=== PATIENT | male | born 1950 | race Caucasian/White ===

== ENCOUNTER 2017-06-11 13:14 | Emergency (ER) | payer MEDICARE ==
[~2017-06-11] VITALS: Ht 185.4 cm; Wt 76.0 kg
[2017-06-11 13:42] LABS: GLUCOSE,POINT OF CARE 141 MG/DL (70-110)
[2017-06-11] MEDS ORDERED: KETOROLAC TROMETHAMINE 60 MG/2 ML VIAL IM ONE (14:00)
[2017-06-11] MEDS ORDERED: KETOROLAC TROMETHAMINE 10 MG TABLET PO ONE (14:30)
[2017-06-11 15:18] VITALS: BP 137/73
== END 2017-06-11 15:54 | disposition home or self-care (01) ==
LOC: EMS 13:16
DX: S20.212A Contusion of left front wall of thorax, initial encounter (principal); E11.9 Type 2 diabetes mellitus without complications; E78.00 Pure hypercholesterolemia, unspecified; I10 Essential (primary) hypertension; F12.90 Cannabis use, unspecified, uncomplicated; F17.210 Nicotine dependence, cigarettes, uncomplicated; V49.40XA Driver injured in collision with unspecified motor vehicles in traffic accident, initial encounter; Y93.89 Activity, other specified; Y92.89 Other specified places as the place of occurrence of the external cause; Y99.8 Other external cause status
CPT/HCPCS: 71020; 82962; 99284; J1885

== ENCOUNTER 2017-08-10 04:55 | Inpatient (IN) | payer MEDICARE ==
[~2017-08-10] VITALS: Ht 180.3 cm; Wt 71.1 kg
[2017-08-10 06:22] LABS: EOSINOPHILS % (AUTO) 0 % (1.0-6.0); HEMATOCRIT 27.9 % (41-53); HEMOGLOBIN 9.2 g/dL (13.5-17.5); LYMPHOCYTES # (AUTO) 0.5 K/uL (1.0-4.8); LYMPHOCYTES % (AUTO) 3.7 % (22.0-44.0); MEAN CORPUSCULAR HEMOGLOBIN 29.2 pg (26.0-34.0); MEAN CORPUSCULAR HGB CONC 33.1 G/dL (31.0-37.0); MEAN CORPUSCULAR VOLUME 88 fL (80-100); MONOCYTES # (AUTO) 1.3 K/uL (0.1-1.0); MONOCYTES % (AUTO) 9.1 % (2.0-9.0); NEUTROPHILS # (AUTO) 12.9 K/uL (1.8-7.7); PLATELET COUNT (AUTO) 325 K/uL (150-450); RED BLOOD CELL COUNT(AUTO) 3.15 MIL/uL (4.50-5.90); RED CELL DISTRIBUTION WIDTH 18.1 % (11.5-14.5)
[2017-08-10 06:23] LABS: NEUTROPHILS % (AUTO) 87.2 % (40.0-70.0)
[2017-08-10] MEDS ORDERED: ACETAMINOPHEN 325 MG TABLET PO ONE (06:30)
[2017-08-10] MEDS ORDERED: ACETAMINOPHEN 1000 MG/ISO-OSM 100 ML IV ONE (06:30)
[2017-08-10 06:31] LABS: ANION GAP 18 mmol/L (8-16); CALCIUM, TOTAL 9.2 mg/dL (8.8-10.5); CARBON DIOXIDE 24 mmol/L (22-29); CHLORIDE 98 mmol/L (98-107); CREATININE 12.87 mg/dL (0.60-1.30); GLOMERULAR FILTR. RATE CALC 4 mL/min (>60); GLUCOSE,RANDOM 261 mg/dL (70-110); POTASSIUM 4.1 mmol/L (3.5-5.1); SODIUM SERUM 140 mmol/L (136-145); UREA NITROGEN, BLOOD 55 mg/dL (7-18)
[2017-08-10 06:32] LABS: INR 1.2 (0.9-1.1); PROTHROMBIN TIME 12.6 SEC (9.4-11.6)
[2017-08-10 06:37] LABS: ALANINE AMINOTRANSFERASE 11 U/L (12-78); ALBUMIN 2.5 g/dL (3.4-5.0); ALKALINE PHOSPHATASE 107 U/L (46-116); ASPARTATE AMINOTRANSFERASE 13 U/L (15-37); BILIRUBIN,TOTAL 0.6 mg/dL (0.1-1.0); CREATINE KINASE, TOTAL 58 U/L (39-308); TOTAL PROTEIN, SERUM 8.1 g/dL (6.4-8.2)
[2017-08-10 06:39] LABS: TROPONIN I 0.11 ng/mL (0.00-0.05)
[2017-08-10] MEDS ORDERED: CEFEPIME HCL 1 GM in DEXTROSE 5%-WATER 50 ML IV ONE (06:45)
[2017-08-10] MEDS ORDERED: VANCOMYCIN HCL 1 GM/D5% WATER 200 ML IV ONE (06:45)
[2017-08-10 07:08] LABS: AMPHET/METH SCREEN,URINE NEGATIVE (NEGATIVE); BARBITURATE SCREEN, URINE NEGATIVE (NEGATIVE); BENZODIAZEPINES SCREEN,URINE NEGATIVE (NEGATIVE); CANNABINOID SCREEN,URINE NEGATIVE (NEGATIVE); COCAINE SCREEN,URINE NEGATIVE (NEGATIVE); METHADONE SCREEN, URINE NEGATIVE (NEGATIVE); OPIATE SCREEN,URINE NEGATIVE (NEGATIVE)
[2017-08-10 07:12] LABS: PHENCYCLIDINE SCREEN,URINE NEGATIVE (NEGATIVE)
[2017-08-10 07:15] LABS: AMMONIA < 10 umol/L (11-32); LACTIC ACID 2.5 mmol/L (0.4-2.0)
[2017-08-10 07:17] LABS: INFLUENZA TYPE A NEGATIVE FOR TYPE A (NEGATIVE); INFLUENZA TYPE B NEGATIVE FOR TYPE B (NEGATIVE)
[2017-08-10] MEDS ORDERED: SODIUM CHLORIDE 0.9% 1,000 ML IV ONE (09:15)
[2017-08-10] MEDS ORDERED: LORazepam 2 MG/ML VIAL IVP ONE ×2 (09:15→10:15)
[2017-08-10] MEDS ORDERED: KETAMINE HCL 50 MG/ML 10 ML VIAL IVP ONE (10:45)
[2017-08-10] MEDS ORDERED: 0.9% SODIUM CHLORIDE 10 ML SYRINGE IVP PRN ×2 (11:45→20:15)
[2017-08-10] MEDS ORDERED: ACETAMINOPHEN 325 MG TABLET PO PRN (11:45)
[2017-08-10] MEDS ORDERED: ONDANSETRON HCL 4 MG/2 ML VIAL IVP PRN (11:45)
[2017-08-10 14:34] VITALS: BP 163/86
[2017-08-10] MEDS ORDERED: HEPARIN SODIUM,PORCINE 1,000 UNITS/ML VIAL IVP ONE (15:56)
[2017-08-10 16:35] VITALS: BP 164/66
[2017-08-10] MEDS ORDERED: HALOPERIDOL LACTATE 5 MG/ML VIAL IM ONE (17:00)
[2017-08-10] MEDS ORDERED: AMIODARONE HCL 360 MG in DEXTROSE 5%-WATER 242.8 ML IV ONE (19:30)
[2017-08-10] MEDS ORDERED: AMIODARONE HCL 150 MG in DEXTROSE 5%-WATER 97 ML IV ONE (19:30)
[2017-08-10 20:18] VITALS: BP 111/57
[2017-08-10 20:34] LABS: MAGNESIUM 1.8 mg/dL (1.80-2.40); PHOSPHORUS 3.1 mg/dL (2.5-4.9)
[2017-08-10] MEDS ORDERED: VANCOMYCIN HCL 1 GM/D5% WATER 200 ML IV PRN (20:45)
[2017-08-10] MEDS ORDERED: PIPERACILLIN SODIUM/TAZOBACTAM 0.75 GM in DEXTROSE 5%-WATER 50 ML IV PRN (20:45)
[2017-08-10] MEDS: PIPERACILLIN SODIUM/TAZOBACTAM 2.25 GM in DEXTROSE 5%-WATER 50 ML IV SCH (22:23)
[2017-08-10] MEDS ORDERED: SODIUM CHLORIDE 0.9% 250 ML IV ONE (22:45)
[2017-08-10] MEDS ORDERED: DEXTROSE 50%-WATER 25 GM/50 ML SYRINGE IVP PRN (23:00)
[2017-08-11] VITALS (8 sets, daily range): BP systolic 13–167; BP diastolic 51–92
[2017-08-11 00:42] LABS: GLUCOMETER DEV NAME(LOC) 5N 2R; GLUCOSE,POINT OF CARE 172 MG/DL (70-110)
[2017-08-11 00:42] LABS: GLUCOMETER DEV NAME(LOC) 5N 2R; GLUCOSE,POINT OF CARE 144 MG/DL (70-110)
[2017-08-11] MEDS ORDERED: AMIODARONE HCL 540 MG in DEXTROSE 5%-WATER 239.2 ML IV ONE (01:30)
[2017-08-11] MEDS ORDERED: SODIUM CHLORIDE 0.9% 50 ML ONE (05:10)
[2017-08-11] MEDS: PIPERACILLIN SODIUM/TAZOBACTAM 2.25 GM in DEXTROSE 5%-WATER 50 ML IV SCH ×3 (06:04→20:31)
[2017-08-11 06:43] LABS: EOSINOPHILS % (AUTO) 0.1 % (1.0-6.0); HEMATOCRIT 26.4 % (41-53); HEMOGLOBIN 8.6 g/dL (13.5-17.5); LYMPHOCYTES # (AUTO) 1.8 K/uL (1.0-4.8); MEAN CORPUSCULAR HEMOGLOBIN 29.2 pg (26.0-34.0); MEAN CORPUSCULAR HGB CONC 32.5 G/dL (31.0-37.0); MEAN CORPUSCULAR VOLUME 90 fL (80-100); MONOCYTES # (AUTO) 1.3 K/uL (0.1-1.0); MONOCYTES % (AUTO) 7.8 % (2.0-9.0); NEUTROPHILS # (AUTO) 13.4 K/uL (1.8-7.7); NEUTROPHILS % (AUTO) 81.1 % (40.0-70.0); PLATELET COUNT (AUTO) 321 K/uL (150-450); RED BLOOD CELL COUNT(AUTO) 2.94 MIL/uL (4.50-5.90); RED CELL DISTRIBUTION WIDTH 18.2 % (11.5-14.5)
[2017-08-11 07:01] LABS: ALBUMIN 2.2 g/dL (3.4-5.0); BILIRUBIN,TOTAL 0.6 mg/dL (0.1-1.0); CALCIUM, TOTAL 9.5 mg/dL (8.8-10.5); CREATININE 8.51 mg/dL (0.60-1.30); MAGNESIUM 1.8 mg/dL (1.80-2.40); PHOSPHORUS 5.5 mg/dL (2.5-4.9); POTASSIUM 4.3 mmol/L (3.5-5.1); TOTAL PROTEIN, SERUM 7.7 g/dL (6.4-8.2)
[2017-08-11] MEDS: -POST HEMODIALYSIS NOTE- MISC SCH (09:00)
[2017-08-11] MEDS: CALCIUM ACETATE 667 MG CAPSULE PO SCH ×3 (09:26→18:10)
[2017-08-11] MEDS: PANTOPRAZOLE SODIUM 40 MG/VIAL IVP SCH (09:33)
[2017-08-11] MEDS: VITAMIN B COMP/VIT C/FOLIC ACID CAPSULE PO SCH (09:33)
[2017-08-11 15:47] LABS: GLUCOMETER DEV NAME(LOC) 5N 2R; GLUCOSE,POINT OF CARE 219 MG/DL (70-110)
[2017-08-11] MEDS: METOPROLOL TARTRATE 25 MG TABLET PO SCH ×2 (18:10→20:31)
[2017-08-11] MEDS ORDERED: AMIODARONE HCL 750 MG in DEXTROSE 5%-WATER 485 ML IV SCH (19:30)
[2017-08-11] MEDS: INSULIN ASPART 100 UNITS/ML SQ PRN (20:42)
[2017-08-12] MEDS: PIPERACILLIN SODIUM/TAZOBACTAM 2.25 GM in DEXTROSE 5%-WATER 50 ML IV SCH ×3 (04:13→20:53)
[2017-08-12 04:36] VITALS: BP 133/68
[2017-08-12] MEDS: ACETAMINOPHEN 325 MG TABLET PO PRN ×2 (04:36→18:20)
[2017-08-12] MEDS: INSULIN ASPART 100 UNITS/ML SQ PRN ×2 (06:22→18:28)
[2017-08-12 07:16] VITALS: BP 104/51
[2017-08-12 07:47] LABS: VANCOMYCIN,RANDOM 11.3 mcg/mL (25.0-50.0)
[2017-08-12 07:51] LABS: % IRON SATURATION 47.1 % (30-44)
[2017-08-12] MEDS ORDERED: VANCOMYCIN HCL 1 GM/D5% WATER 200 ML IV ONE (09:00)
[2017-08-12 09:35] VITALS: BP 134/87
[2017-08-12] MEDS: METOPROLOL TARTRATE 25 MG TABLET PO SCH ×2 (09:38→20:54)
[2017-08-12] MEDS: VITAMIN B COMP/VIT C/FOLIC ACID CAPSULE PO SCH (09:38)
[2017-08-12] MEDS: CALCIUM ACETATE 667 MG CAPSULE PO SCH ×3 (09:38→18:20)
[2017-08-12] MEDS: EPOETIN ALFA 10,000 UNITS/ML VIAL SQ SCH (09:39)
[2017-08-12] MEDS: PANTOPRAZOLE SODIUM 40 MG/VIAL IVP SCH (09:40)
[2017-08-12 10:03] LABS: APPEARANCE,URINE TURBID (CLEAR); BILIRUBIN,URINE NEGATIVE (NEGATIVE); GLUCOSE, URINE (UA) 250 mg/dL (NEGATIVE); KETONES,URINE TRACE mg/dL (NEGATIVE); LEUKOCYTE ESTERASE ,URINE MODERATE (NEGATIVE); NITRATE,URINE NEGATIVE (NEGATIVE); OCCULT BLOOD,URINE LARGE (NEGATIVE); PH,URINE 7.5 (5.0-8.0); PROTEIN,URINE SEE CONFIRM (NEGATIVE); UROBILINOGEN,URINE 0.2 mg/dL (<=1.0)
[2017-08-12 10:32] LABS: SULFOSALICYLIC ACID,URINE 3+ (Negative)
[2017-08-12 10:34] LABS: RBC,URINE 26-50 /HPF (0-2)
[2017-08-12 10:35] LABS: BACTERIA,URINE Few /HPF (None Seen); WBC,URINE 51-100 /HPF (0-5)
[2017-08-12 10:36] LABS: SQUAMOUS EPITHELIAL CELL,UR Few /LPF (None Seen); TRANSITIONAL EPI CELLS,URINE Few /LPF (None Seen)
[2017-08-12 10:37] LABS: AMORPHOUS SEDIMENT,UR Few /LPF (None Seen); FINE GRANULAR CASTS,URINE 0-2 /LPF (None Seen)
[2017-08-12 11:37] VITALS: BP 137/76
[2017-08-12] MEDS: -POST HEMODIALYSIS NOTE- MISC SCH (12:31)
[2017-08-12] MEDS ORDERED: SODIUM CHLORIDE 0.9% 100 ML ONE (13:35)
[2017-08-12 15:35] VITALS: BP 148/80
[2017-08-12 17:28] LABS: GLUCOMETER DEV NAME(LOC) 5N 1M; GLUCOSE,POINT OF CARE 199 MG/DL (70-110)
[2017-08-12 17:29] LABS: GLUCOMETER DEV NAME(LOC) 5N 1M; GLUCOSE,POINT OF CARE 228 MG/DL (70-110)
[2017-08-12 17:29] LABS: GLUCOMETER DEV NAME(LOC) 5N 1M; GLUCOSE,POINT OF CARE 203 MG/DL (70-110)
[2017-08-12 17:29] LABS: GLUCOMETER DEV NAME(LOC) 5N 1M; GLUCOSE,POINT OF CARE 253 MG/DL (70-110)
[2017-08-12 17:33] LABS: GLUCOMETER DEV NAME(LOC) 5N 2R; GLUCOSE,POINT OF CARE 215 MG/DL (70-110)
[2017-08-12 18:03] LABS: GLUCOMETER DEV NAME(LOC) 5N 1M; GLUCOSE,POINT OF CARE 253 MG/DL (70-110)
[2017-08-12 19:38] VITALS: BP 122/72
[2017-08-12] MEDS ORDERED: SODIUM CHLORIDE 0.9% 250 ML IV ONE (20:44)
[2017-08-13 00:23] VITALS: BP 121/74
[2017-08-13] MEDS: ACETAMINOPHEN 325 MG TABLET PO PRN ×3 (03:09→15:01)
[2017-08-13 04:34] VITALS: BP 128/89
[2017-08-13] MEDS: PIPERACILLIN SODIUM/TAZOBACTAM 2.25 GM in DEXTROSE 5%-WATER 50 ML IV SCH ×3 (05:42→21:11)
[2017-08-13] MEDS: INSULIN ASPART 100 UNITS/ML SQ PRN ×4 (05:58→21:18)
[2017-08-13 06:07] LABS: GLUCOMETER DEV NAME(LOC) 6N 1E; GLUCOSE,POINT OF CARE 259 MG/DL (70-110)
[2017-08-13 07:52] VITALS: BP 114/61
[2017-08-13] MEDS: CALCIUM ACETATE 667 MG CAPSULE PO SCH ×3 (07:59→18:05)
[2017-08-13] MEDS: PANTOPRAZOLE SODIUM 40 MG/VIAL IVP SCH (08:02)
[2017-08-13] MEDS ORDERED: SODIUM CHLORIDE 0.9% 2,000 ML IV ONE (08:56)
[2017-08-13] MEDS: ASPIRIN 81 MG CHEWABLE TABLET PO SCH (10:12)
[2017-08-13] MEDS: METOPROLOL TARTRATE 25 MG TABLET PO SCH ×2 (10:47→21:14)
[2017-08-13 10:50] LABS: HEMATOCRIT 28.2 % (41-53); HEMOGLOBIN 9.1 g/dL (13.5-17.5); MEAN CORPUSCULAR HEMOGLOBIN 28.9 pg (26.0-34.0); MEAN CORPUSCULAR HGB CONC 32.1 G/dL (31.0-37.0); MEAN CORPUSCULAR VOLUME 90 fL (80-100); PLATELET COUNT (AUTO) 383 K/uL (150-450); RED BLOOD CELL COUNT(AUTO) 3.13 MIL/uL (4.50-5.90); RED CELL DISTRIBUTION WIDTH 18.8 % (11.5-14.5)
[2017-08-13 11:58] LABS: EOSINOPHILS % (MANUAL) 1 % (1-6); LYMPHOCYTES % (MANUAL) 19 % (22-44); MONOCYTES % (MANUAL) 6 % (2-9); SEGMENTED NEUTROPHILS % 74 % (40-70)
[2017-08-13] MEDS ORDERED: ONDANSETRON HCL 4 MG/2 ML VIAL IVP PRN (12:15)
[2017-08-13] MEDS: VITAMIN B COMP/VIT C/FOLIC ACID CAPSULE PO SCH (13:04)
[2017-08-13 14:08] VITALS: BP 155/71
[2017-08-13 16:00] VITALS: BP 100/67
[2017-08-13 16:11] LABS: CALCIUM, TOTAL 8.3 mg/dL (8.8-10.5); CREATININE 11.39 mg/dL (0.60-1.30); POTASSIUM 3.3 mmol/L (3.5-5.1)
[2017-08-13 17:38] LABS: GLUCOMETER DEV NAME(LOC) 6N 2D; GLUCOSE,POINT OF CARE 277 MG/DL (70-110)
[2017-08-13 18:34] LABS: GLUCOMETER DEV NAME(LOC) 6N 1E; GLUCOSE,POINT OF CARE 171 MG/DL (70-110)
[2017-08-13 20:00] VITALS: BP 123/59
[2017-08-14 00:28] VITALS: BP 139/68
[2017-08-14 02:32] LABS: GLUCOMETER DEV NAME(LOC) 6N 2D; GLUCOSE,POINT OF CARE 265 MG/DL (70-110)
[2017-08-14] MEDS: CefTRIAXone 1 GM/DEXTROSE 50 ML IV SCH (03:38)
[2017-08-14 04:00] VITALS: BP 112/60
[2017-08-14 07:17] VITALS: BP 129/64
[2017-08-14] MEDS: INSULIN ASPART 100 UNITS/ML SQ PRN ×3 (07:31→21:06)
[2017-08-14 07:36] LABS: HEMATOCRIT 27.7 % (41-53); HEMOGLOBIN 8.7 g/dL (13.5-17.5); MEAN CORPUSCULAR HEMOGLOBIN 28.5 pg (26.0-34.0); MEAN CORPUSCULAR HGB CONC 31.5 G/dL (31.0-37.0); MEAN CORPUSCULAR VOLUME 90 fL (80-100); PLATELET COUNT (AUTO) 407 K/uL (150-450); RED BLOOD CELL COUNT(AUTO) 3.06 MIL/uL (4.50-5.90); RED CELL DISTRIBUTION WIDTH 18.5 % (11.5-14.5)
[2017-08-14 07:43] LABS: CREATININE 9.45 mg/dL (0.60-1.30)
[2017-08-14 08:45] LABS: CALCIUM, TOTAL 9.2 mg/dL (8.8-10.5); POTASSIUM 4.5 mmol/L (3.5-5.1)
[2017-08-14] MEDS: VITAMIN B COMP/VIT C/FOLIC ACID CAPSULE PO SCH (09:46)
[2017-08-14] MEDS: CALCIUM ACETATE 667 MG CAPSULE PO SCH ×3 (09:46→18:04)
[2017-08-14] MEDS: PANTOPRAZOLE SODIUM 40 MG/VIAL IVP SCH (09:47)
[2017-08-14] MEDS: ASPIRIN 81 MG CHEWABLE TABLET PO SCH (09:47)
[2017-08-14] MEDS: METOPROLOL TARTRATE 25 MG TABLET PO SCH ×2 (09:47→21:01)
[2017-08-14] MEDS: EPOETIN ALFA 10,000 UNITS/ML VIAL SQ SCH (09:50)
[2017-08-14 10:14] LABS: BAND NEUTROPHILS % (MANUAL) 3 % (1-5); LYMPHOCYTES % (MANUAL) 16 % (22-44); MONOCYTES % (MANUAL) 5 % (2-9); SEGMENTED NEUTROPHILS % 76 % (40-70)
[2017-08-14 11:33] LABS: GLUCOMETER DEV NAME(LOC) 6N 1E; GLUCOSE,POINT OF CARE 158 MG/DL (70-110)
[2017-08-14 11:33] LABS: GLUCOMETER DEV NAME(LOC) 6N 1E; GLUCOSE,POINT OF CARE 166 MG/DL (70-110)
[2017-08-14 15:00] VITALS: BP 122/70
[2017-08-14 17:28] LABS: GLUCOMETER DEV NAME(LOC) 6N 2D; GLUCOSE,POINT OF CARE 262 MG/DL (70-110)
[2017-08-14 20:32] VITALS: BP 130/59
[2017-08-14] MEDS: ACETAMINOPHEN 325 MG TABLET PO PRN (21:12)
[2017-08-14 23:24] VITALS: BP 107/57
[2017-08-14 23:43] LABS: GLUCOMETER DEV NAME(LOC) 6N 1E; GLUCOSE,POINT OF CARE 245 MG/DL (70-110)
[2017-08-15] MEDS: CefTRIAXone 1 GM/DEXTROSE 50 ML IV SCH (02:32)
[2017-08-15] MEDS: ACETAMINOPHEN 325 MG TABLET PO PRN ×3 (02:32→16:44)
[2017-08-15] MEDS ORDERED: SODIUM CHLORIDE 0.9% 100 ML ONE (03:14)
[2017-08-15 05:04] VITALS: BP 116/61
[2017-08-15] MEDS: INSULIN ASPART 100 UNITS/ML SQ PRN ×4 (05:46→22:05)
[2017-08-15 06:47] LABS: GLUCOMETER DEV NAME(LOC) 6N 1E; GLUCOSE,POINT OF CARE 161 MG/DL (70-110)
[2017-08-15 07:13] VITALS: BP 112/51
[2017-08-15 07:46] LABS: CREATININE 12.15 mg/dL (0.60-1.30); POTASSIUM 4.4 mmol/L (3.5-5.1)
[2017-08-15 07:48] LABS: BASOPHILS % (AUTO) 0.1 % (0.0-2.0); EOSINOPHILS % (AUTO) 2.7 % (1.0-6.0); LYMPHOCYTES # (AUTO) 1.9 K/uL (1.0-4.8); LYMPHOCYTES % (AUTO) 13.4 % (22.0-44.0); MEAN CORPUSCULAR HEMOGLOBIN 28.9 pg (26.0-34.0); MEAN CORPUSCULAR HGB CONC 32.1 G/dL (31.0-37.0); MEAN CORPUSCULAR VOLUME 90 fL (80-100); MONOCYTES # (AUTO) 0.8 K/uL (0.1-1.0); MONOCYTES % (AUTO) 5.8 % (2.0-9.0); NEUTROPHILS # (AUTO) 10.8 K/uL (1.8-7.7); PLATELET COUNT (AUTO) 486 K/uL (150-450); RED BLOOD CELL COUNT(AUTO) 3.11 MIL/uL (4.50-5.90); RED CELL DISTRIBUTION WIDTH 18.6 % (11.5-14.5)
[2017-08-15] MEDS: ASPIRIN 81 MG CHEWABLE TABLET PO SCH (08:24)
[2017-08-15] MEDS: CALCIUM ACETATE 667 MG CAPSULE PO SCH ×3 (08:24→17:56)
[2017-08-15] MEDS: VITAMIN B COMP/VIT C/FOLIC ACID CAPSULE PO SCH (08:24)
[2017-08-15] MEDS: PANTOPRAZOLE SODIUM 40 MG/VIAL IVP SCH (08:24)
[2017-08-15 11:35] VITALS: BP 121/68
[2017-08-15 11:39] LABS: GLUCOMETER DEV NAME(LOC) 6N 2D; GLUCOSE,POINT OF CARE 316 MG/DL (70-110)
[2017-08-15] MEDS: METOPROLOL TARTRATE 25 MG TABLET PO SCH ×2 (12:00→21:59)
[2017-08-15 15:05] VITALS: BP 126/60
[2017-08-15 17:53] LABS: GLUCOMETER DEV NAME(LOC) 6N 2D; GLUCOSE,POINT OF CARE 201 MG/DL (70-110)
[2017-08-15 19:35] VITALS: BP 132/61
[2017-08-16 00:30] VITALS: BP 124/66
[2017-08-16] MEDS: ACETAMINOPHEN 325 MG TABLET PO PRN ×2 (04:19→11:37)
[2017-08-16] MEDS: CefTRIAXone 1 GM/DEXTROSE 50 ML IV SCH (04:24)
[2017-08-16] MEDS ORDERED: SODIUM CHLORIDE 0.9% 100 ML ONE (05:19)
[2017-08-16 05:44] VITALS: BP 132/55
[2017-08-16] MEDS: INSULIN ASPART 100 UNITS/ML SQ PRN ×4 (06:44→20:36)
[2017-08-16 07:18] LABS: GLUCOMETER DEV NAME(LOC) 6N 1E; GLUCOSE,POINT OF CARE 217 MG/DL (70-110)
[2017-08-16] MEDS ORDERED: SODIUM CHLORIDE 0.9% 1,000 ML IV ONE ×2 (07:41)
[2017-08-16 07:43] VITALS: BP 147/79
[2017-08-16] MEDS: CALCIUM ACETATE 667 MG CAPSULE PO SCH ×3 (08:00→17:52)
[2017-08-16 08:52] LABS: C-REACTIVE PROTEIN QUANT 5.49 mg/dL (0.00-0.30); CALCIUM, TOTAL 9.4 mg/dL (8.8-10.5); CREATININE 14.63 mg/dL (0.60-1.30); POTASSIUM 4.1 mmol/L (3.5-5.1)
[2017-08-16] MEDS: METOPROLOL TARTRATE 25 MG TABLET PO SCH ×2 (09:00→20:32)
[2017-08-16 09:09] LABS: EOSINOPHILS % (AUTO) 2.1 % (1.0-6.0); HEMATOCRIT 23.7 % (41-53); HEMOGLOBIN 7.7 g/dL (13.5-17.5); LYMPHOCYTES % (AUTO) 14.6 % (22.0-44.0); MEAN CORPUSCULAR HEMOGLOBIN 29.1 pg (26.0-34.0); MEAN CORPUSCULAR HGB CONC 32.4 G/dL (31.0-37.0); MEAN CORPUSCULAR VOLUME 90 fL (80-100); MONOCYTES # (AUTO) 0.9 K/uL (0.1-1.0); NEUTROPHILS # (AUTO) 10.3 K/uL (1.8-7.7); NEUTROPHILS % (AUTO) 76.3 % (40.0-70.0); PLATELET COUNT (AUTO) 480 K/uL (150-450); RED BLOOD CELL COUNT(AUTO) 2.64 MIL/uL (4.50-5.90); RED CELL DISTRIBUTION WIDTH 18.5 % (11.5-14.5)
[2017-08-16] MEDS ORDERED: HEPARIN SODIUM,PORCINE 1,000 UNITS/ML VIAL IVP ONE (09:53)
[2017-08-16] MEDS: ASPIRIN 81 MG CHEWABLE TABLET PO SCH (11:32)
[2017-08-16] MEDS: PANTOPRAZOLE SODIUM 40 MG/VIAL IVP SCH (11:32)
[2017-08-16] MEDS: VITAMIN B COMP/VIT C/FOLIC ACID CAPSULE PO SCH (11:32)
[2017-08-16 11:38] VITALS: BP 128/59
[2017-08-16 11:43] LABS: GLUCOMETER DEV NAME(LOC) 6N 1E; GLUCOSE,POINT OF CARE 198 MG/DL (70-110)
[2017-08-16 15:10] VITALS: BP 119/75
[2017-08-16 17:53] LABS: GLUCOMETER DEV NAME(LOC) 6N 1E; GLUCOSE,POINT OF CARE 190 MG/DL (70-110)
[2017-08-16 19:58] VITALS: BP 139/64
[2017-08-17] MEDS ORDERED: IOVERSOL 350 MG/ML 100 ML VIAL ONE (02:07)
[2017-08-17] MEDS ORDERED: SODIUM CHLORIDE 0.9% 100 ML ONE (02:07)
[2017-08-17] MEDS ORDERED: BARIUM SULFATE 0.1% SUSPENSION 450 ML BOTTLE ONE ×2 (02:08)
[2017-08-17] MEDS: CefTRIAXone 1 GM/DEXTROSE 50 ML IV SCH (03:38)
[2017-08-17] MEDS: ACETAMINOPHEN 325 MG TABLET PO PRN ×2 (03:46→17:58)
[2017-08-17 03:53] LABS: GLUCOMETER DEV NAME(LOC) 6N 1E; GLUCOSE,POINT OF CARE 245 MG/DL (70-110)
[2017-08-17 05:50] VITALS: BP 114/59
[2017-08-17] MEDS: INSULIN ASPART 100 UNITS/ML SQ PRN ×4 (06:26→21:32)
[2017-08-17 07:17] LABS: CALCIUM, TOTAL 9.4 mg/dL (8.8-10.5); CREATININE 12.13 mg/dL (0.60-1.30); EOSINOPHILS # (AUTO) 0.27 K/uL (0.00-0.70); EOSINOPHILS % (AUTO) 3.01 % (1.0-6.0); HEMATOCRIT 24.1 % (41-53); HEMOGLOBIN 7.6 g/dL (13.5-17.5); LYMPHOCYTES # (AUTO) 1.5 K/uL (1.0-4.8); LYMPHOCYTES % (AUTO) 16.5 % (22.0-44.0); MEAN CORPUSCULAR HGB CONC 31.6 G/dL (31.0-37.0); MEAN CORPUSCULAR VOLUME 92 fL (80-100); MONOCYTES # (AUTO) 0.8 K/uL (0.1-1.0); MONOCYTES % (AUTO) 8.6 % (2.0-9.0); NEUTROPHILS # (AUTO) 6.4 K/uL (1.8-7.7); NEUTROPHILS % (AUTO) 71.9 % (40.0-70.0); PLATELET COUNT (AUTO) 474 K/uL (150-450); POTASSIUM 4.3 mmol/L (3.5-5.1); RED BLOOD CELL COUNT(AUTO) 2.63 MIL/uL (4.50-5.90); RED CELL DISTRIBUTION WIDTH 18.9 % (11.5-14.5)
[2017-08-17 07:20] VITALS: BP 109/49
[2017-08-17 07:23] LABS: GLUCOMETER DEV NAME(LOC) 6N 1E; GLUCOSE,POINT OF CARE 189 MG/DL (70-110)
[2017-08-17] MEDS: PANTOPRAZOLE SODIUM 40 MG/VIAL IVP SCH (08:26)
[2017-08-17] MEDS: CALCIUM ACETATE 667 MG CAPSULE PO SCH ×3 (08:26→18:11)
[2017-08-17] MEDS: ASPIRIN 81 MG CHEWABLE TABLET PO SCH (08:26)
[2017-08-17] MEDS: VITAMIN B COMP/VIT C/FOLIC ACID CAPSULE PO SCH (08:26)
[2017-08-17] MEDS: METOPROLOL TARTRATE 25 MG TABLET PO SCH ×2 (08:27→20:16)
[2017-08-17 12:17] LABS: GLUCOMETER DEV NAME(LOC) 6N 1E; GLUCOSE,POINT OF CARE 207 MG/DL (70-110)
[2017-08-17] MEDS: EPOETIN ALFA 10,000 UNITS/ML VIAL SQ SCH (12:20)
[2017-08-17 12:25] VITALS: BP 131/62
[2017-08-17 15:03] VITALS: BP 144/58
[2017-08-17 18:13] LABS: GLUCOMETER DEV NAME(LOC) 6N 2D; GLUCOSE,POINT OF CARE 258 MG/DL (70-110)
[2017-08-17 19:45] VITALS: BP 122/62
[2017-08-17 20:13] LABS: GLUCOMETER DEV NAME(LOC) 5N 2R; GLUCOSE,POINT OF CARE 239 MG/DL (70-110)
[2017-08-17 22:18] LABS: GLUCOMETER DEV NAME(LOC) 6N 2D; GLUCOSE,POINT OF CARE 178 MG/DL (70-110)
[2017-08-17 23:30] VITALS: BP 124/62
[2017-08-18] MEDS ORDERED: SODIUM CHLORIDE 0.9% 250 ML IV ONE (02:13)
[2017-08-18] MEDS: CefTRIAXone 1 GM/DEXTROSE 50 ML IV SCH (02:17)
[2017-08-18] MEDS: ACETAMINOPHEN 325 MG TABLET PO PRN (03:35)
[2017-08-18 04:00] VITALS: BP 128/64
[2017-08-18] MEDS: INSULIN ASPART 100 UNITS/ML SQ PRN ×3 (05:28→20:44)
[2017-08-18] MEDS ORDERED: SODIUM CHLORIDE 0.9% 2,000 ML IV ONE (06:26)
[2017-08-18 06:54] LABS: GLUCOMETER DEV NAME(LOC) 6N 2D; GLUCOSE,POINT OF CARE 210 MG/DL (70-110)
[2017-08-18] MEDS: CALCIUM ACETATE 667 MG CAPSULE PO SCH ×3 (08:00→18:14)
[2017-08-18] MEDS ORDERED: HEPARIN SODIUM,PORCINE 1,000 UNITS/ML VIAL IVP ONE ×3 (11:00→17:42)
[2017-08-18] MEDS: EPOETIN ALFA 10,000 UNITS/ML VIAL SQ SCH (12:02)
[2017-08-18] MEDS: PANTOPRAZOLE SODIUM 40 MG/VIAL IVP SCH (12:03)
[2017-08-18] MEDS: VITAMIN B COMP/VIT C/FOLIC ACID CAPSULE PO SCH (12:04)
[2017-08-18] MEDS: ASPIRIN 81 MG CHEWABLE TABLET PO SCH (12:04)
[2017-08-18] MEDS: METOPROLOL TARTRATE 25 MG TABLET PO SCH ×2 (12:04→20:42)
[2017-08-18 12:17] VITALS: BP 131/59
[2017-08-18 16:59] VITALS: BP 129/68
[2017-08-18] MEDS ORDERED: ACETAMINOPHEN 325 MG TABLET PO ONE (17:42)
[2017-08-18 18:32] LABS: GLUCOMETER DEV NAME(LOC) 6N 2D; GLUCOSE,POINT OF CARE 197 MG/DL (70-110)
[2017-08-18 18:32] LABS: GLUCOMETER DEV NAME(LOC) 6N 2D; GLUCOSE,POINT OF CARE 180 MG/DL (70-110)
[2017-08-18 19:15] VITALS: BP 137/53
[2017-08-18 23:28] VITALS: BP 135/60
[2017-08-19 00:57] LABS: GLUCOMETER DEV NAME(LOC) 6N 1E; GLUCOSE,POINT OF CARE 197 MG/DL (70-110)
[2017-08-19 04:04] VITALS: BP 135/79
[2017-08-19] MEDS: CefTRIAXone 1 GM/DEXTROSE 50 ML IV SCH (04:05)
[2017-08-19] MEDS: INSULIN ASPART 100 UNITS/ML SQ PRN ×4 (05:52→20:32)
[2017-08-19 06:54] LABS: MAGNESIUM 1.8 mg/dL (1.80-2.40); PHOSPHORUS 5.6 mg/dL (2.5-4.9)
[2017-08-19 06:58] LABS: GLUCOMETER DEV NAME(LOC) 6N 1E; GLUCOSE,POINT OF CARE 323 MG/DL (70-110)
[2017-08-19 07:08] VITALS: BP 133/69
[2017-08-19] MEDS: METOPROLOL TARTRATE 25 MG TABLET PO SCH ×2 (09:30→20:29)
[2017-08-19] MEDS: CALCIUM ACETATE 667 MG CAPSULE PO SCH ×3 (09:30→18:01)
[2017-08-19] MEDS: PANTOPRAZOLE SODIUM 40 MG/VIAL IVP SCH (09:30)
[2017-08-19] MEDS: VITAMIN B COMP/VIT C/FOLIC ACID CAPSULE PO SCH (09:30)
[2017-08-19] MEDS: ASPIRIN 81 MG CHEWABLE TABLET PO SCH (09:30)
[2017-08-19 12:12] VITALS: BP 142/67
[2017-08-19 15:40] VITALS: BP 140/65
[2017-08-19 19:57] LABS: GLUCOMETER DEV NAME(LOC) 6N 1E; GLUCOSE,POINT OF CARE 172 MG/DL (70-110)
[2017-08-19 19:57] LABS: GLUCOMETER DEV NAME(LOC) 6N 1E; GLUCOSE,POINT OF CARE 226 MG/DL (70-110)
[2017-08-19 20:16] VITALS: BP 129/58
[2017-08-20] VITALS (9 sets, daily range): BP systolic 117–149; BP diastolic 60–88
[2017-08-20] MEDS: ACETAMINOPHEN 325 MG TABLET PO PRN ×2 (00:44→18:08)
[2017-08-20] MEDS: CefTRIAXone 1 GM/DEXTROSE 50 ML IV SCH (02:54)
[2017-08-20 05:30] LABS: GLUCOMETER DEV NAME(LOC) 6N 1E; GLUCOSE,POINT OF CARE 255 MG/DL (70-110)
[2017-08-20 06:09] LABS: GLUCOMETER DEV NAME(LOC) 6N 1E; GLUCOSE,POINT OF CARE 177 MG/DL (70-110)
[2017-08-20] MEDS: CALCIUM ACETATE 667 MG CAPSULE PO SCH ×3 (08:00→18:06)
[2017-08-20] MEDS: METOPROLOL TARTRATE 25 MG TABLET PO SCH ×2 (09:00→20:38)
[2017-08-20] MEDS ORDERED: FentaNYL CITRATE-PF 100 MCG/2 ML VIAL ONE ×2 (11:33→12:21)
[2017-08-20] MEDS ORDERED: BENZOCAINE 20% 50 MCG/SPRAY 57 GM ONE (11:34)
[2017-08-20] MEDS ORDERED: MIDAZOLAM HCL 2 MG/2 ML VIAL ONE ×3 (11:34→12:21)
[2017-08-20] MEDS ORDERED: FentaNYL CITRATE-PF 100 MCG/2 ML VIAL IVP ONE ×3 (12:30)
[2017-08-20] MEDS ORDERED: MIDAZOLAM HCL 2 MG/2 ML VIAL IVP ONE ×3 (12:30)
[2017-08-20] MEDS ORDERED: BENZOCAINE 20% 50 MCG/SPRAY 57 GM TP ONE (12:30)
[2017-08-20] MEDS ORDERED: SODIUM CHLORIDE 0.9% 2,000 ML IV ONE (14:45)
[2017-08-20] MEDS ORDERED: HEPARIN SODIUM,PORCINE 1,000 UNITS/ML VIAL IVP ONE ×3 (16:24→19:45)
[2017-08-20] MEDS: INSULIN ASPART 100 UNITS/ML SQ PRN ×2 (18:06→20:48)
[2017-08-20] MEDS: VITAMIN B COMP/VIT C/FOLIC ACID CAPSULE PO SCH (19:04)
[2017-08-20] MEDS: PANTOPRAZOLE SODIUM 40 MG/VIAL IVP SCH (19:04)
[2017-08-20] MEDS: ASPIRIN 81 MG CHEWABLE TABLET PO SCH (19:04)
[2017-08-20] MEDS ORDERED: CefTRIAXone 1 GM/DEXTROSE 50 ML IV ONE (20:00)
[2017-08-21 00:08] LABS: GLUCOMETER DEV NAME(LOC) 6N 1E; GLUCOSE,POINT OF CARE 239 MG/DL (70-110)
[2017-08-21 03:57] VITALS: BP 139/72
[2017-08-21] MEDS: ACETAMINOPHEN 325 MG TABLET PO PRN (03:59)
[2017-08-21] MEDS: INSULIN ASPART 100 UNITS/ML SQ PRN ×3 (06:28→17:35)
[2017-08-21 08:11] VITALS: BP 126/69
[2017-08-21] MEDS: VITAMIN B COMP/VIT C/FOLIC ACID CAPSULE PO SCH (08:12)
[2017-08-21] MEDS: CALCIUM ACETATE 667 MG CAPSULE PO SCH ×3 (08:12→17:36)
[2017-08-21] MEDS: CefTRIAXone SODIUM 2 GM in DEXTROSE 5%-WATER 50 ML IV SCH (08:12)
[2017-08-21] MEDS: METOPROLOL TARTRATE 25 MG TABLET PO SCH ×2 (08:12→20:29)
[2017-08-21] MEDS: ASPIRIN 81 MG CHEWABLE TABLET PO SCH (08:12)
[2017-08-21] MEDS: PANTOPRAZOLE SODIUM 40 MG/VIAL IVP SCH (08:13)
[2017-08-21] MEDS: EPOETIN ALFA 10,000 UNITS/ML VIAL SQ SCH (08:13)
[2017-08-21 10:47] LABS: GLUCOMETER DEV NAME(LOC) 6N 2D; GLUCOSE,POINT OF CARE 167 MG/DL (70-110)
[2017-08-21 12:06] VITALS: BP 131/66
[2017-08-21 12:33] LABS: GLUCOMETER DEV NAME(LOC) 6N 2D; GLUCOSE,POINT OF CARE 174 MG/DL (70-110)
[2017-08-21 16:00] VITALS: BP 134/65
[2017-08-21 16:58] LABS: GLUCOMETER DEV NAME(LOC) 5N 2R; GLUCOSE,POINT OF CARE 170 MG/DL (70-110)
[2017-08-21 16:58] LABS: GLUCOMETER DEV NAME(LOC) 5N 2R; GLUCOSE,POINT OF CARE 225 MG/DL (70-110)
[2017-08-21 20:24] VITALS: BP 137/69
[2017-08-21] MEDS ORDERED: HydrOXYzine PAMOATE 25 MG CAPSULE PO SCH (21:00)
[2017-08-22] VITALS (7 sets, daily range): BP systolic 131–156; BP diastolic 54–77
[2017-08-22] MEDS ORDERED: CefTRIAXone SODIUM 2 GM in DEXTROSE 5%-WATER 20 ML IV SCH ×2
[2017-08-22] MEDS: ACETAMINOPHEN 325 MG TABLET PO PRN ×2 (03:25→14:38)
[2017-08-22] MEDS: INSULIN ASPART 100 UNITS/ML SQ PRN ×2 (05:41→12:25)
[2017-08-22 05:48] LABS: GLUCOMETER DEV NAME(LOC) 6N 2D; GLUCOSE,POINT OF CARE 173 MG/DL (70-110)
[2017-08-22] MEDS: CefTRIAXone SODIUM 2 GM in DEXTROSE 5%-WATER 50 ML IV SCH (08:13)
[2017-08-22] MEDS: VITAMIN B COMP/VIT C/FOLIC ACID CAPSULE PO SCH (08:13)
[2017-08-22] MEDS: CALCIUM ACETATE 667 MG CAPSULE PO SCH ×2 (08:13→12:24)
[2017-08-22] MEDS: PANTOPRAZOLE SODIUM 40 MG/VIAL IVP SCH (08:13)
[2017-08-22] MEDS: METOPROLOL TARTRATE 25 MG TABLET PO SCH (08:13)
[2017-08-22] MEDS: ASPIRIN 81 MG CHEWABLE TABLET PO SCH (08:13)
[2017-08-22 12:12] LABS: GLUCOMETER DEV NAME(LOC) 5N 2R; GLUCOSE,POINT OF CARE 217 MG/DL (70-110)
[2017-08-22] MEDS ORDERED: ASPI81 PO (15:20)
[2017-08-22] MEDS ORDERED: CEFX1I IM (15:20)
[2017-08-22] MEDS ORDERED: PHOSLOC PO (15:21)
[2017-08-22] MEDS ORDERED: HYDR-4031 PO (15:21)
[2017-08-22] MEDS ORDERED: GLIP5 PO (15:22)
[2017-08-22] MEDS ORDERED: FOLI1CAP2 PO (15:22)
[2017-08-22] MEDS ORDERED: METO25XL PO (15:22)
[2017-08-23] MEDS ORDERED: CefTRIAXone SODIUM 2 GM in DEXTROSE 5%-WATER 20 ML IV SCH ×2
[2017-08-24] MEDS ORDERED: EPOETIN ALFA 10,000 UNITS/ML 2 ML VIAL SQ SCH (09:00)
== END 2017-08-22 16:25 | disposition home or self-care (01) | DRG 871 ==
LOC: EMS 04:56 → UNDOADMIN 06:34 → 5S 06:34 → 5N 11:26 → 6N 08-12 20:36
PROVIDERS: ADMIT Internal Medicine; ATTEND Internal Medicine
PROC: 5A1D70Z Performance of Urinary Filtration, Intermittent, Less than 6 Hours Per Day (ICD-10-PCS; 2017-08-12)
PROC: 5A1D70Z Performance of Urinary Filtration, Intermittent, Less than 6 Hours Per Day (ICD-10-PCS; 2017-08-13)
PROC: 5A1D70Z Performance of Urinary Filtration, Intermittent, Less than 6 Hours Per Day (ICD-10-PCS; 2017-08-18)
PROC: 4A00X4Z Measurement of Central Nervous Electrical Activity, External Approach (ICD-10-PCS; 2017-08-19)
PROC: B245ZZ4 Ultrasonography of Left Heart, Transesophageal (ICD-10-PCS; principal; 2017-08-20)
PROC: 5A1D70Z Performance of Urinary Filtration, Intermittent, Less than 6 Hours Per Day (ICD-10-PCS; 2017-08-20)
PROC: 5A1D70Z Performance of Urinary Filtration, Intermittent, Less than 6 Hours Per Day (ICD-10-PCS; 2017-08-22)
DX: A41.9 Sepsis, unspecified organism (principal); G93.41 Metabolic encephalopathy; I61.5 Nontraumatic intracerebral hemorrhage, intraventricular; E43 Unspecified severe protein-calorie malnutrition; I13.2 Hypertensive heart and chronic kidney disease with heart failure and with stage 5 chronic kidney disease, or end stage renal disease; I48.91 Unspecified atrial fibrillation; N18.6 End stage renal disease; E11.22 Type 2 diabetes mellitus with diabetic chronic kidney disease; N39.0 Urinary tract infection, site not specified; F17.210 Nicotine dependence, cigarettes, uncomplicated; E78.5 Hyperlipidemia, unspecified; F12.90 Cannabis use, unspecified, uncomplicated; I50.9 Heart failure, unspecified; Z68.21 Body mass index [BMI] 21.0-21.9, adult; E78.00 Pure hypercholesterolemia, unspecified; I05.9 Rheumatic mitral valve disease, unspecified; D64.9 Anemia, unspecified; Z53.29 Procedure and treatment not carried out because of patient's decision for other reasons; R65.20 Severe sepsis without septic shock; Z78.1 Physical restraint status; Z91.15 Patient's noncompliance with renal dialysis; Z99.2 Dependence on renal dialysis
CPT/HCPCS: 51702; 70450; 70544; 70551; 74177; 82962; 83540; 83550; 83605; 83735; 84100; 84145; 85651; 86140; 86430; 87040; 87081; 87086; 87147; 87340; 87804; 90935; 93005; 93306; 93312; 95816; 96361; 96365; 96367; 96375; 97162; 97165; 97530; 99285; C9113; J0131; J0282; J0692; J0696; J0885; J1630; J1644; J2060; J2250; J2405; J2543; J3010; J3370; J3490; J7030; J7050; J7060